=== PATIENT | male | born 1955 | race Caucasian/White ===

== ENCOUNTER 2024-09-15 16:52 | Emergency (ER) | payer MEDICARE, OTHER ==
[~2024-09-15] VITALS: Ht 167.6 cm; Wt 68.1 kg
--- NOTE | 2024-09-15 17:36 | ED.PDOC ---
HPI Comments 69-year-old male presents with a chief complaint of laceration s/p mechanical fall. Patient had a ground-level mechanical fall at home and landed on concrete. Patient sustained an approximately 5cm x 1cm laceration to the superior portion of his left eyebrow. Bleeding is controlled right now in triage with gauze. Patient denies losing consciousness or hitting his head. No use of blood thinners. Patient mildly hypertensive on arrival. Chief Complaint: Laceration Time Seen by MD: 17:33 Primary Care Provider: NONE Reviewed Notes: Nurses Notes, Medications, Allergies Allergies: Coded Allergies: NO KNOWN ALLERGIES (Unverified , 07/27/13) Information Source: Patient Mode of Arrival: Wheelchair Severity: Moderate Severity of Laceration: Controlled Bleeding Complexity: Intermediate Timing: Minutes Prehospital treatment: None Laceration Location: Face (SUPERIOR LEFT EYEBROW) Mechanism: Fall Last Tetanus: Unknown Laceration Length (cm): 5 Skin Type: Jagged Depth of Injury: Skin, Mucosa, SQ Tender: Moderate Discharge: Bloody Past Medical History PAST MEDICAL HISTORY: Denies Surgical History: Denies all surgeries Family History Family History: Unknown Social History Smoker: Cigarettes Alcohol: Denies ETOH Use Drugs: Denies Drug Use Lives In: Home Constitutional: denies: chills, diaphoresis, fatigue, fever, malaise, sweats, weakness, others EENTM: denies: blurred vision, double vision, ear bleeding, ear discharge, ear drainage, ear pain, ear ringing, eye pain, eye redness, hearing loss, mouth pain, mouth swelling, nasal discharge, nose bleeding, nose congestion, nose josie n, photophobia, tearing, throat pain, throat swelling, voice changes, others Respiratory: denies: cough, hemoptysis, orthopnea, SOB at rest, shortness of breath, SOB with excertion, stridor, wheezing, others Cardiovascular: denies: chest pain, dizzy spells, diaphoresis, Dyspnea on exertion, edema, irregular heart beat, left arm pain, lightheadedness, palpitations, PND, syncope, others Gastrointestinal: denies: abdomen distended, abdominal pain, blood streaked bowels, constipated, diarrhea, dysphagia, difficulty swallowing, hematemesis, melena, nausea, poor appetite, poor fluid intake, rectal bleeding, rectal pain, vomiting, others Genitourinary: denies: burning, dysuria, flank pain, frequency, hematuria, incontinence, penile discharge, penile sore, pain, testicle pain, testicle swelling, urgency, others Neurological: denies: dizziness, fainting, headache, left sided numbness, left sided weakness, numbness, paresthesia, pre-existing deficit, right sided numbness, right sided weakness, seizure, speech problems, tingling, tremors, weakness, others Musculoskeletal: denies: back pain, gout, joint pain, joint swelling, muscle pain, muscle stiffness, neck pain, others Integumetry: reports: laceration (Left eyebrow); denies: bruises, change in color, change in hair/nails, dryness, lesions, lumps, rash, wounds, others Allergic/Immunocompromised: denies: Difficulty Healing, Frequent Infections, Hives, Itching, others Hematologic/Lymphatic: denies: anemia, blood clots, easy bleeding, easy bruising, swollen glands, others Endocrine: denies: excessive hunger, excessive sweating, excessive thirst, excessive urination, flushing, intolerance to cold, intolerance to heat, unexplained weight gain, unexplained weight loss, others Psychiatric: denies: anxiety, bipolar disorder, depression, hopeless, panic disorder, schizophrenia, sleepless, suicidal, others All Other Systems: Reviewed and Negative Physical Exam General Appearance: Moderate Distress (Jcej-hz-votwanhv distress due to left eyebrow laceration and anxiety related to his injury.), Normal HEENT: Head (Patient displays a abrasion and burst laceration to the left eyebrow. Laceration that is approximately 5 cm wide throughout the brow. No ac tive bleed. No skull depressions or deformities. Abrasion noted to bridge of nose. Patient denies any eye involvement or vision changes.), Normal ENT Inspection, Pharynx Normal, TMs Normal Neck: Full Range of Motion, Non-Tender, Normal, Normal Inspection Respiratory: Chest Non-Tender, Lungs Clear, No Accessory Muscle Use, No Respiratory Distress, Normal Breath Sounds Cardiovascular: No Edema, No JVD, No Murmur, No Gallop, Normal Peripheral Pulses, Regular Rate/Rhythm Breast Exam: Deferred Gastrointestinal: No Organomegaly, Non Tender, No Pulsatile Mass, Normal Bowel Sounds, Soft Genitalia: Deferred Pelvic: Deferred Rectal: Deferred Extremities: No calf tenderness, Normal capillary refill, Normal inspection, Normal range of motion, Non-tender, No pedal edema Musculoskeletal : Apperance: Normal Neurologic: Alert, No Motor Deficits, Normal Affect, Normal Mood, No Sensory Deficits Cerebellar Function: NOT DONE Reflexes: NOT DONE Skin: Dry, Lacerations (See HEENT for description of laceration), Normal Color, Warm Lymphatic: No Adenopathy Was a procedure done? Was a procedure done?: Yes Sedation Sedation?: No Other Procedure Notes 6 cc of 1% lidocaine was utilized for local anesthesia throughout the left eyebrow. Sterile field was placed. Copious irrigation performed. Twelve 4-0 Ethilon sutures were utilized in a simple interrupted fashion to close the wound. Minimal blood loss. Patient tolerated procedure well. Clean bandage applied. Differential diagnosis Generic Laceration: Other (Fall, facial trauma, facial laceration, facial fracture) X-Ray, Labs, Meds, VS Vital Signs Date Time Temp Pulse Resp B/P (MAP) Pulse Ox O2 Delivery O2 Flow Rate FiO2 09/15/24 17:03 98.3 78 18 159/82 (107) 95 X-Ray, Labs, Meds, VS Comment All studies performed the ED were evaluated by me personally. No definitive skull fractures. Nasal bone fracture noted. Patient tolerated procedure well. Advised patient utilize antibiotics as directed until completion as well as pain medication as needed. Patient should return to ED or primary care provider in 10 days for re-evaluation and probable suture removal. Time of 1ST Reevaluation: 19:34 Reevaluation 1ST: Improved Consultation: PCP Patient Education/Counseling: Diagnosis, Treatment, Prognosis Family Education/Counseling: Diagnosis, Treatment, Prognosis Departure 1 Departure Time of Disposition: 19:34 Impression: Primary Impression: Fall Additional Impressions: Facial trauma Facial laceration Disposition: HOME / SELF CARE / HOMELESS Condition: Stable Additional Instructions: Advised patient utilize topical and oral antibiotics as directed and pain medication as needed. Patient should return to ED or primary care provider in 10 days for re-evaluation and probable suture removal. e-Prescriptions Acetaminophen (Tylenol Extra Strength) 500 Mg Tab 500 MG PO Q4HP PRN, #30 TAB Prov: NURIA VAUGHN PAC 09/15/24 Cephalexin (KEFLEX CAPSULE) 250 Mg Cp 1 CAP PO QID for 7 Days, #28 CAP Prov: NURIA VAUGHN PAC 09/15/24 Bacitracin Base (Bacitracin) 500 Unit/Gm Oin 500 UNIT TOP BID, #30 GM Prov: NURIA VAUGHN PAC 09/15/24 Discharged With: Self, Friend Critical Care Note Critical Care Time?: No Stability Stability form required: No I personally scribed for NURIA VAUGHN PAC ([email or web address]) on 09/15/24 at 17:36. Electronically submitted by Brian Crane ([email or web address]). NURIA VAUGHN PAC Sep 15, 2024 17:36
--- NOTE | 2024-09-15 18:17 | DVH ---
EXAM: CT MAXILLOFACIAL WITHOUT HISTORY: Left eyebrow trauma COMPARISON: None TECHNIQUE: Axial images were obtained and reformatted in coronal and sagittal planes. All CT scans at this medical facility are performed using dose modulation techniques as appropriate t o a performed exam including the following: Automated exposure control was utilized; adjustment of th e MA and/or KV according to patient size; and use of iterative reconstruction technique. CT Dose: CTDI volume is 66.92 mGy. Dose-length product is 1313.11 mGy*cm FINDINGS: PARANASAL SINUSES: Clear with no evidence for mucoperiosteal thickening or air-fluid level. OSTIOMEATAL COMPLEXES: Unremarkable. Specifically, the infundibulum are patent. NASAL CAVITY: The osseous nasal septum is midline. The nasal turbinates are unremarkable. MASTOIDS: Unremarkable. TEMPOROMANDIBULAR JOINTS: Unremarkable. ORBITS: Unremarkable. ORAL CAVITY: Grossly unremarkable. TONSILS AND ADENOIDS: Unremarkable. BONES/SOFT TISSUES: Age-indeterminate minimally displaced fracture of the right nasal bone near the t ip noted. The orbital bones are intact. The zygomatic arches, pterygoid plates and mandible are int act. Large left supraorbital laceration extending to the underlying bone. Small adjacent subcutaneous hematoma and trace subcutaneous air noted. OTHER: None. IMPRESSION: 1. Left supraorbital laceration extending to underlying bone without associated acute frontal bone in jury. A small adjacent subcutaneous hematoma is seen. No foreign body. 2. Age-indeterminate minimally displaced right nasal bone fracture noted. Correlate with haylee whitlock
[2024-09-15] MEDS ORDERED: CEPH250C PO (19:36)
[2024-09-15] MEDS ORDERED: BACIOIN15 TOP (19:36)
[2024-09-15] MEDS ORDERED: ACET-1304 PO (19:36)
[2024-09-15 19:45] VITALS: BP 145/97; PULSE 85; RESP 16; TEMP 98.3; O2SAT 94
== END 2024-09-15 20:12 | disposition home or self-care (01) ==
LOC: ER 16:52
DX: S02.2XXA Fracture of nasal bones, initial encounter for closed fracture (principal); S01.112A Laceration without foreign body of left eyelid and periocular area, initial encounter; F17.210 Nicotine dependence, cigarettes, uncomplicated; W18.30XA Fall on same level, unspecified, initial encounter; Y93.89 Activity, other specified; Y92.89 Other specified places as the place of occurrence of the external cause; Y99.8 Other external cause status
CPT/HCPCS: 12013; 70486

== ENCOUNTER 2024-09-29 22:03 | Emergency (ER) | payer SELFPAY ==
[~2024-09-29] VITALS: Ht 167.6 cm; Wt 79.8 kg
[~2024-09-29 22:03] MED LIST: ACET-1304 PO; BACIOIN15 TOP; CEPH250C PO
[2024-09-29 22:36] VITALS: BP 152/62; PULSE 105; RESP 20; O2SAT 96
--- NOTE | 2024-09-30 00:14 | ED.PDOC ---
History of Present Illness(SKN HPI Comments Pt pesents to ED d/t suture removal. Pt had sutures placed 12 days ago. Healing complete. No odor, drainage or redness noted.fevers or chills Chief Complaint: Suture Removal Time Seen by MD: 22:29 Primary Care Provider: NONE History of Present Illness: Nurses Notes, Medications, Allergies Allergies: Coded Allergies: NO KNOWN ALLERGIES (Unverified , 07/27/13) Home Meds Active Scripts Acetaminophen (Tylenol Extra Strength) 500 Mg Tab, 500 MG PO Q4HP PRN, #30 TAB Prov:NURIA VAUGHN PAC 09/15/24 Cephalexin (KEFLEX CAPSULE) 250 Mg Cp, 1 CAP PO QID for 7 Days, #28 CAP Prov:NURIA VAUGHN PAC 09/15/24 Bacitracin Base (Bacitracin) 500 Unit/Gm Oin, 500 UNIT TOP BID, #30 GM Prov:NURIA VAUGHN PAC 09/15/24 Information Source: Patient Mode of Arrival: Ambulatory Past Medical History PAST MEDICAL HISTORY: Denies Surgical History: Denies all surgeries Family History Family History: Reviewed,noncontributory to illness, Unknown Social History Smoker: Cigarettes Alcohol: Denies ETOH Use Drugs: Denies Drug Use Lives In: Home Constitutional: denies: chills, diaphoresis, fatigue, fever, malaise, sweats, weakness, others EENTM: denies: blurred vision, double vision, ear bleeding, ear discharge, ear drainage, ear pain, ear ringing, eye pain, eye redness, hearing loss, mouth pain, mouth swelling, nasal discharge, nose bleeding, nose congestion, nose pain, photophobia, tearing, throat pain, throat swelling, voice changes, others Respiratory: denies: cough, hemoptysis, orthopnea, SOB at rest, shortness of breath, SOB with excertion, stridor, wheezing, others Cardiovascular: denies: chest pain, dizzy spells, diaphoresis, Dyspnea on exertion, edema, irregular heart beat, left arm pain, lightheadedness, palpitations, PND, syncope, others Gastrointestinal: denies: abdomen distended, abdominal pain, blood streaked bowels, constipated, diarrhea, dysphagia, difficulty swallowing, hematemesis, melena, nausea, poor appetite, poor fluid intake, rectal bleeding, rectal pain, vomiting, others Genitourinary: denies: burning, dysuria, flank pain, frequency, hematuria, inc ontinence, penile discharge, penile sore, pain, testicle pain, testicle swelling, urgency, others Neurological: denies: dizziness, fainting, headache, left sided numbness, left sided weakness, numbness, paresthesia, pre-existing deficit, right sided numbness, right sided weakness, seizure, speech problems, tingling, tremors, weakness, others Musculoskeletal: denies: back pain, gout, joint pain, joint swelling, muscle pain, muscle stiffness, neck pain, others Integumetry: reports: laceration (Twelve sutures intact); denies: bruises, change in color, change in hair/nails, dryness, lesions, lumps, rash, wounds, others Allergic/Immunocompromised: denies: Difficulty Healing, Frequent Infections, Hives, Itching, others Hematologic/Lymphatic: denies: anemia, blood clots, easy bleeding, easy bruising, swollen glands, others Endocrine: denies: excessive hunger, excessive sweating, excessive thirst, excessive urination, flushing, intolerance to cold, intolerance to heat, unexplained weight gain, unexplained weight loss, others Psychiatric: denies: anxiety, bipolar disorder, depression, hopeless, panic disorder, schizophrenia, sleepless, suicidal, others Physical Exam General Appearance: No Apparent Distress, Normal HEENT: Pharynx Normal Neck: Full Range of Motion, Non-Tender Respiratory: Lungs Clear, No Respiratory Distress, Normal Breath Sounds Cardiovascular: No Murmur, Normal Peripheral Pulses, Regular Rate/Rhythm Breast Exam: Deferred Gastrointestinal: Non Tender, Soft Genitalia: Deferred Pelvic: Deferred Rectal: Deferred Extremities: Normal range of motion, Non-tender Musculoskeletal : Apperance: Normal Neurologic: Alert, alteration tailor II-XII nml as Tested, No Motor Deficits, Normal Affect, Normal Mood, No Sensory Deficits Cerebellar Function: Normal Reflexes: Normal Skin: Dry, Lacerations (Twelve sutures laceration above left eye laceration with good approximation healed no noted drainage erythema or), Normal Color, Warm Lymphatic: No Adenopathy Was a procedure done? Was a procedure done?: Yes Sedation Sedation?: No Informed consent obtained: Yes Other Procedure Procedure Suture removal Indication Healed Anesthetic None Prep None Success 12 sutures removed successfully all intact no noted bleeding patient tolerated well Informed consent obtained: Yes Risks, benefits, and alternati: Yes Differential Diagnosis (INTG) Differential Diagnosis: Cellulitis X-Ray, Labs, Meds, VS Vital Signs Date Time Temp Pulse Resp B/P (MAP) Pulse Ox O2 Delivery O2 Flow Rate FiO2 09/29/24 22:36 98.7 105 20 152/62 (92) 96 X-Ray, Labs, Meds, VS Comment See procedure note. Patient discharged advised to follow up with his PCP 2-3 days as necessary ER return precautions given patient indicates understanding. Time of 1ST Reevaluation: 00:13 Reevaluation 1ST: Improved Patient Education/Counseling: Diagnosis, Treatment, Prognosis, Need For Follow Up Family Education/Counseling: No Family Present Departure 1 Departure Time of Disposition: 00:13 Impression: Primary Impression: Encounter for removal of sutures Disposition: HOME / SELF CARE / HOMELESS Condition: Stable Discharged With: Self Critical Care Note Critical Care Time?: No Stability Stability form required: LUCIA Paulino Sep 30, 2024 00:14
== END 2024-09-30 00:23 | disposition home or self-care (01) ==
LOC: ER 22:03
DX: S05.32XD Ocular laceration without prolapse or loss of intraocular tissue, left eye, subsequent encounter (principal); F17.210 Nicotine dependence, cigarettes, uncomplicated; Z48.02 Encounter for removal of sutures; X58.XXXD Exposure to other specified factors, subsequent encounter

== ENCOUNTER 2025-04-19 03:34 | Inpatient (IN) | payer MEDICARE ==
[~2025-04-19] VITALS: Ht 170.2 cm; Wt 80.4 kg
[2025-04-19] VITALS (17 sets, daily range): BP systolic 99–111; BP diastolic 69–80; PULSE 54–89; RESP 16–20; TEMP 97.7–99.4; O2SAT 91–100
[2025-04-19] MEDS: MAGNESIUM SULFATE 1GM/100ML 100 ML IV ONE (04:00)
--- NOTE | 2025-04-19 04:04 | ED.PDOC ---
SOB-HPI HPI Comments HPI: 69-year-old male who came to ER for shortness of breath. Patient has a history of COPD. Not on home oxygen. Has been short of breath for the past 12 hours progressively worsened in the past 3 hours. Denies any acute chest pains. Patient was saturating 87% on room air upon arrival. Patient admits to still smoke cigarettes Initial Vitals BP: 111/75 HR: 87 RR: O2: Temp: Past Medical History: COPD Past Surgical History: Denies Social History: Denies ETOH, (+) chronic smoker, HPI: Poor Historian. REVIEW OF SYSTEMS: CONSTITUTIONAL: Denies acute: fever, diaphoresis, chills, generalized weakness. HEAD: Denies acute: headache, photophobia Eyes: Denies acute: Double vision, vision loss, eye pain, eye discharge. EARS: Denies acute: tinnitus, hearing loss, ear discharge, ear pain, THROAT: Denies acute: sore throat, swelling, difficulty swallowing , pain with swallowing, change in voice. NECK: Denies acute: neck pain, neck swelling, stiff neck. HEART: Denies acute : chest pain, palpitations, LUNGS: Denies acute: wheezing, cough, hemoptysis ABDOMEN: Denies acute: abdominal pain, Nausea, Vomiting, diarrhea, melena , hematemesis, hematochezia SKIN: Denies acute: rash, redness, lesions, itchiness. EXTREMITIES: Denies acute: calf pain, numbness, tingling, weakness, denies pain in extremity. Denies acute: Low back pain. Neuro: Denies acute: focal neurological deficit, motor or sensory focal neurological deficit, tremors, seizure like activity, confusion, dizziness, change in mental status, loss of bowel or bladder function, cauda equina like symptoms. : Denies acute: dysuria, hematuria, flank pain, increase in urinary frequency. PSYCH: Denies acute: hallucination, suicidal ideation, homicidal ideation. PHYSICAL EXAM: General: --------acute distress, awake and alert. Head: normocephalic, atraumatic. Neck: supple, trachea is midline, no swelling. Throat: Normal phonation. Eyes:, no erythema, no purulent discharge, no proptosis, no icterus. Heart: regular rate, regular rhythm, no significant murmur appreciated. Lungs: Moderate respiratory distress, No wheezing, no rhonchi, no crackles. No stridors. Diminished breath sounds throughout Abdomen: non tender to palpation, non distended, soft, no guarding, no rebound, + bowel sounds. Neuro: Awake, Alert, oriented to name, self, situation, follows commands GCS=15. Speech is normal. Skin: no petechia, no purpura, no cyanosis, non-pale, not jaundice. Lower extremities: --no - Pitting edema no deformity, no focal swelling, no calf TTP. Makes eye contact. moves all four extremities. Face: no apparent facial droop. ED COURSE: DISCLAIMER: This medical document was created using an electronic medical record system with voice recognition software and computerized dictation system. Although this document has been carefully reviewed, there might still be some phonetic and typographical errors. Occasional wrong-word or "sound-alike" substitutions may have occurred due to the inherent limitations of voice recognition software. These areas are purely typographical due to imperfections of the software programs and do not reflect any compromise in the patient's medical care. Please read the chart carefully and recognize, using context, where these substitutions have occurred. Chief Complaint: Shortness of Breath Time Seen by MD: 04:03 Primary Care Provider: NONE Reviewed notes: Nurses Notes Information Source: Patient Mode of Arrival: Wheelchair Past Medical History PAST MEDICAL HISTORY: COPD Surgical History: Denies all surgeries Family History Family History: Reviewed,noncontributory to illness Social History Smoker: Cigarettes, Greater Than 1 Pack/Day Alcohol: Denies ETOH Use Drugs: Denies Drug Use Lives In: Home EKG EKG : Pulse Rate (adult): 103 Cardiac Rhythm: Afib Was a procedure done? Was a procedure done?: No Differential Dx Differential Diagnosis: Asthma, Bronchitis, COPD, Hyperventilation, Pneumonia, Respiratory Distress, Other (DDx include ACS, unstable angina, anxiety, PE, pneumothroax, neoplasm, cardiac ischemia, COPD, asthma, CHF, pleural effusion, tobacco abuse, pneumonia, hypoxia, hypercapnia, anemia., infection/sepsis., pulmonary edema. Asthma, Cardiac tamponade, infection.) X-Ray, Labs, Meds, VS Vital Signs Date Time Temp Pulse Resp B/P (MAP) Pulse Ox O2 Delivery O2 Flow Rate FiO2 04/19/25 04:29 22 96 Simple Mask* 6 50 04/19/25 04:04 103 04/19/25 03:53 103 04/19/25 03:35 99.4 95 22 111/75 98 99.4 Lab Test 04/19/25 05:15 04/19/25 04:00 Range/Units Troponin I High Sensitivity 15 16 </=54 ng/L White Blood Count 19.4 H 4.4-10.8 10^3/uL Red Blood Count 4.90 4.5-5.90 10^6/uL Hemoglobin 15.1 13.5-17.5 g/dL Hematocrit 44.8 41.0-53.0 % Mean Corpuscular Volume 91.3 80.0-100.0 fL Mean Corpuscular Hemoglobin 30.8 28.0-32.0 pg Mean Corpuscular Hemoglobin Concent 33.7 32.0-36.0 g/dL Red Cell Distribution Width 14.5 H 11.8-14.3 % Platelet Count 289 140-450 10^3/uL Mean Platelet Volume 7.9 6.9-10.8 fL Neutrophils (%) (Auto) 82.2 H 37.0-80.0 % Lymphocytes (%) (Auto) 9.0 L 10.0-50.0 % Monocytes (%) (Auto) 7.8 0.0-12.0 % Eosinophils (%) (Auto) 0.2 0.0-7.0 % Basophils (%) (Auto) 0.8 0.0-2.0 % Neutrophils # (Auto) 15.9 H 1.6-8.6 10 ^3/uL Lymphocytes # (Auto) 1.7 0.4-5.4 10 ^3/uL Monocytes # (Auto) 1.5 H 0-1.3 10 ^3/uL Eosinophils # (Auto) 0 0-0.8 10 ^3/uL Basophils # (Auto) 0.1 0-0.2 10 ^3/uL Nucleated Red Blood Cells 0.0 % D-Dimer, Quantitative 0.33 0.0-0.49 mg/L FEU Sodium Level 140 136-145 mmol/L Potassium Level 4.6 3.5-5.1 mmol/L Chloride Level 106 98-107 mmol/L Carbon Dioxide Level 27 20-31 mmol/L Anion Gap 7 5-15 Blood Urea Nitrogen 14 9-23 mg/dL Creatinine 1.37 H 0.700-1.30 mg/dL Glomerular Filtration Rate Calc 57 >90 mL/min BUN/Creatinine Ratio 10.2 10.0-20.0 Serum Glucose 95 74-106 mg/dL Calcium Level 9.7 8.7-10.4 mg/dL Total Bilirubin 1.1 H 0.2-1.0 mg/dL Aspartate Amino Transferase (AST) 24 13-40 U/L Alanine Aminotransferase (ALT) 13 7-40 U/L Alkaline Phosphatase 78 46-116 U/L B-Type Natriuretic Peptide 73.84 0-100 pg/mL Total Protein 7.3 5.7-8.2 g/dL Albumin 4.3 3.2-4.8 g/dL Current Medications Medications (Trade) Dose Ordered Sig/Viraj Route Start Time Stop Time Status Last Admin Albuterol (Ventolin Medneb) 2.5 mg ONCE ONCE NEB 04/19/25 04:00 04/19/25 04:01 DC 04/19/25 04:30 Ipratropium [place] (Atrovent Medneb) 1 mg ONCE ONCE NEB 04/19/25 04:00 04/19/25 04:01 DC 04/19/25 04:29 Albuterol (Ventolin Medneb) 2.5 mg ONCE ONCE NEB 04/19/25 05:30 04/19/25 05:31 DC 04/19/25 05:35 Ipratropium Outlook (Atrovent Medneb) 1 mg ONCE ONCE NEB 04/19/25 05:30 04/19/25 05:31 DC 04/19/25 05:[address] [address] Ph: [phone] DIAGNOSTIC IMAGING Diagnostic Imaging Report : [id number] Signed PATIENT: TARA MENDOZA ACCT: [id number] UNIT: [id number] : 1955 LOC: ER ROOM / BED: / AGE / SEX: 69 / M ADM STATUS: REG ER SERVICE 0339 ORDERING PHYSICIAN: GAIL RICKS DO PROCEDURE(s): CXRP - CHEST PORTABLE REASON: sob ORDER NUMBER(s): [id number], ACCESSION NUMBER(s): [id number] CHEST RADIOGRAPH Indication: sob Technique: 2 frontal radiographs of the chest were obtained. Comparison: None FINDINGS: Lines and Tubes: None Lungs: No focal consolidation. Pleura: No effusion. No pneumothorax. Cardiomediastinal contours: Unremarkable Bones: No acute osseous abnormality. IMPRESSION: 1. No acute cardiopulmonary disease. ATED BY: VIOLA JOHNSON MD DICTATED DATE/TIME: 04/19/25450 SIGNED BY: VIOLA JOHNSON MD SIGNED DATE/TIME: 04/19/25450 CC: Time of 1ST Reevaluation: 04:00 Reevaluation 1ST: Unchanged Patient Education/Counseling: Diagnosis, Treatment Family Education/Counseling: Diagnosis, Treatment Comments MDM: patient presented with the above HPI.---dyspnea/respiratory distress---workup was initiated. patient was found with the above mentioned diagnosis. the following medications were ordered: please refer to order lists of meds and tests obtained by myself Dr. Ricks. Patient ED course and VS have been stabilized. Patient has been reassessed in the ED and remained in a stable condition. Pertinent incidental findings were discussed with the patient and/or family. Patient/family voices understanding and is agreeable with plan. Patient has been observed in the ED adequate length of time to insure improvement/stability. Escalation of care considered: Consideration of escalation to observation or admission Patient was found with leukocytosis, antibiotics were initiated. Patient was given breathing treatments and steroids. Patient was placed on supplemental oxygen. Patient was ADMITTED to the medicine team for further evaluation and treatment of their presentation. All the reports of any imaging studies that were ordered by myself were reviewed by myself. SEPSIS Sepsis Screen Physician Orders [facility] (04/19/25 ) Urinalysis (04/19/25 03:39) Chest Portable (04/19/25 03:39) Troponin-I Hs (04/19/25 06:39) Vital Signs Date Time Temp Pulse Resp B/P (MAP) Pulse Ox O2 Delivery O2 Flow Rate FiO2 04/19/25 04:29 22 96 Simple Mask* 6 50 04/19/25 04:04 103 04/19/25 03:53 103 9/12/25 03:35 99.4 95 22 111/75 98 99.4 Laboratory Tests Test 04/19/25 04:00 White Blood Count 19.4 10^3/uL (4.4-10.8) H Medications Medications Dose Ordered Sig/Viraj Route Start Time Stop Time Status Last Admin Dose Admin Albuterol 2.5 mg ONCE ONCE NEB 04/19/25 04:00 04/19/25 04:01 DC 04/19/25 04:30 Albuterol 2.5 mg ONCE ONCE NEB 04/19/25 05:30 04/19/25 05:31 DC 04/19/25 05:35 Ipratropium Outlook 1 mg ONCE ONCE NEB 04/19/25 04:00 04/19/25 04:01 DC 04/19/25 04:29 Ipratropium [place] 1 mg ONCE ONCE NEB 04/19/25 05:30 04/19/25 05:31 DC 04/19/25 05:35 Departure 1 Departure Time of Disposition: 04:04 Impression: Primary Impression: Acute respiratory distress Additional Impressions: Hypoxemia COPD exacerbation Tobacco abuse Leukocytosis Disposition: ADMITTED INPATIENT Admit to: Tele Condition: Guarded Discharged With: Self, Spouse Critical Care Note Critical Care Time?: Yes (45 min-critical care time only) Stability Stability form required: No Heart Score Heart Score: Heart Score Response (Comments) Value History Moderate Suspicious 1 EKG Repolarization Disturb 1 Age >65 2 Risk Factors 1 or 2 risk factors 1 Troponin Normal limit 0 Total 5 I personally scribed for GAIL RICKS DO ([email or web address]) on 04/19/25 at 04:04. Electronically submitted by Martinez Wallace ([employer]). I personally scribed for GAIL RICKS DO ([email or web address]) on 04/19/25 at 04:19. Electronically submitted by Martinez Wallace ([employer]). I personally scribed for GAIL RICKS DO ([email or web address]) on 04/19/25 at 05:17. Electronically submitted by Martinez Wallace ([employer]). GAIL RICKS DO Apr 19, 2025 04:04
--- NOTE | 2025-04-19 04:09 | ECG ---
[facility] Test Date: 2025-04-19 Test Time: 03:53:25 Pat Name: TARA MENDOZA Department: ED Room: 0284T Gender: M Patternmaker All Around: ONEL : 1955 Requested By: GAIL RICKS Order Number: [id number] Reading MD: Scott Gonzalez Measurements Intervals Marble Rate: 103 P: 0 NC: 0 QRS: 78 QRSD: 90 T: 98 QT: 339 QTc: 444 Interpretive Statements Normal sinus rhythm Ventricular tachycardia, unsustained Borderline low voltage, extremity leads Electronically Signed On 04-24-2025 9:25:17 PDT by Scott Gonzalez Please click the below link to view image of tracing.
[2025-04-19 04:15] LABS: Hematocrit 44.8 % (41.0-53.0); Hemoglobin 15.1 g/dL (13.5-17.5); Mean Corpuscular Hemoglobin 30.8 pg (28.0-32.0); Mean Corpuscular Volume 91.3 fL (80.0-100.0); Nucleated Red Blood Cells % 0.0 %
[2025-04-19] MEDS: IPRATROPIUM BROM 0.5 MG/2.5ML INH SOL NEB ONE ×2 (04:29→05:35)
[2025-04-19] MEDS: ALBUTEROL SULF 2.5 MG/0.5ML(0.5%) NEB SOLN NEB ONE ×2 (04:30→05:35)
[2025-04-19 04:33] LABS: Alanine Aminotransferase 13 U/L (7-40); Alkaline Phosphatase 78 U/L (46-116); Anion Gap 7 (5-15); Calcium 9.7 mg/dL (8.7-10.4); Carbon Dioxide 27 mmol/L (20-31); Chloride 106 mmol/L (98-107); Glucose 95 mg/dL (74-106); Potassium 4.6 mmol/L (3.5-5.1); Sodium 140 mmol/L (136-145); Total Protein 7.3 g/dL (5.7-8.2)
[2025-04-19 04:34] LABS: Albumin 4.3 g/dL (3.2-4.8); BUN/Creatinine Ratio 10.2 (10.0-20.0); Bilirubin, Total 1.1 mg/dL (0.2-1.0); Blood Urea Nitrogen 14 mg/dL (9-23)
--- NOTE | 2025-04-19 04:54 | DVH ---
CHEST RADIOGRAPH Indication: sob Technique: 2 frontal radiographs of the chest were obtained. Comparison: None FINDINGS: Lines and Tubes: None Lungs: No focal consolidation. Pleura: No effusion. No pneumothorax. Cardiomediastinal contours: Unremarkable Bones: No acute osseous abnormality. IMPRESSION: 1. No acute cardiopulmonary disease.
--- NOTE | 2025-04-19 07:25 | DVHHP2 ---
History of Present Illness Reason for Visit: Shortness of the breath History of Present Illness 69-year-old male past medical history denies denies surgical history chief complaint patient comes in with shortness of the breath for one day. No fever patient does have a cough does have some phlegm is yellow in color no blood. Patient denies any calf pain or leg swelling. He states he does not use oxygen at home. Patient does admit to being a smoker greater than 30 years he smokes proximally and pack a day. He states he has not been diagnosed with any COPD in the past. He states he started developing shortness of the breath 12 hours prior to arrival with the last 3 hours his symptoms got worse. He also was found to have O2 sats 87% on room air. When evaluating patient's labs and imaging patient was given albuterol Atrovent ceftriaxone normal saline magnesium Solu-Medrol white count was found to be 19.4 otherwise CBC was unremarkable creatinine was 1.37 troponin was negative x2 BNP was 73.84 chest x-ray was unremarkable D-dimer was negative with these findings we will admit patient for new onset COPD exacerbation Past Medical History See HPI above Past Surgical History See HPI above Past Social History Patient has been smoking greater than 30 years a pack of cigarettes daily denies drug or alcohol use Review of Systems Constitutional: No: Fever, Chills, Sweats, Weakness, Malaise, Other Eyes: No: Pain, Vision change, Conjunctivae inflammation, Eyelid inflammation, Other, Redness ENT: No: Ear pain, Ear discharge, Nose pain, Nose discharge, Nose congestion, Mouth pain, Mouth swelling, Throat pain, Throat swelling, Other Respiratory: Shortness of breath, SOB with excertion, Wheezing; No: Cough, Dry, Hemoptysis, Pleuritic Pain, Sputum, Wheezing, Other Cardiovascular: No: Chest Pain, Palpitations, Orthopnea, Paroxysmal Noc. Dyspnea, Edema, Lt Headedness, Other Gastrointestinal: No: Nausea, Vomiting, Abdominal Pain, Diarrhea, Constipation, Melena, Hematochezia, Other Genitourinary: No Dysuria, No Frequency, No Incontinence, No Hematuria, No Retention, No Other Musculoskeletal: No: other, neck pain, shoulder pain, arm pain, back pain, hand pain, leg pain, foot pain Skin: No: Rash, Lesions, Jaundice, Bruising, Other Neurological: No: Weakness, Numbness, Incoordination, Change in speech, Confusion, Seizures, Other Allergies: Coded Allergies: NO KNOWN ALLERGIES (Unverified , 07/27/13) Exam Vital Signs Vital Signs Date Time Temp Pulse Resp B/P (MAP) Pulse Ox O2 Delivery O2 Flow Rate FiO2 04/19/25 04:29 22 96 Simple Mask* 6 50 04/19/25 04:04 103 04/19/25 03:35 99.4 111/75 99.4 General Appearance: Alert, Oriented X3, Cooperative, mild distress HEENT: Atraumatic, PERRLA, EOMI, Mucous membr. moist/pink Respiratory: Other (diminished throughout ) Cardiovascular: Regular rate, Normal S1, Normal S2, No murmurs Abdominal: Normal bowel sounds, Soft, No tenderness, No hepatospenomegaly, No masses Extremities: No clubbing, No cyanosis, No edema, Normal pulses, No tenderness/swelling Skin: No rashes, No breakdown, No significant lesion Neuro: Normal gait, Normal speech, Strength at 5/5 X4 ext, Normal tone, Sensation intact, Cranial nerves 3-12 NL Psych/Mental Status: Mental status NL, Mood NL Labs/Xrays Chest x-ray unremarkable I reviewed labs, imaging CT scan abdomen pelvis, EKG and all diagnostic studies on this patient from ED records and the medical chart Labs Test 04/19/25 05:15 04/19/25 04:00 Range/Units Troponin I High Sensitivity 15 </=54 ng/L White Blood Count 19.4 H 4.4-10.8 10^3/uL Red Blood Count 4.90 4.5-5.90 10^6/uL Hemoglobin 15.1 13.5-17.5 g/dL Hematocrit 44.8 41.0-53.0 % Mean Corpuscular Volume 91.3 80.0-100.0 fL Mean Corpuscular Hemoglobin 30.8 28.0-32.0 pg Mean Corpuscular Hemoglobin Concent 33.7 32.0-36.0 g/dL Red Cell Distribution Width 14.5 H 11.8-14.3 % Platelet Count 289 140-450 10^3/uL Mean Platelet Volume 7.9 6.9-10.8 fL Neutrophils (%) (Auto) 82.2 H 37.0-80.0 % Lymphocytes (%) (Auto) 9.0 L 10.0-50.0 % Monocytes (%) (Auto) 7.8 0.0-12.0 % Eosinophils (%) (Auto) 0.2 0.0-7.0 % Basophils (%) (Auto) 0.8 0.0-2.0 % Neutrophils # (Auto) 15.9 H 1.6-8.6 10 ^3/uL Lymphocytes # (Auto) 1.7 0.4-5.4 10 ^3/uL Monocytes # (Auto) 1.5 H 0-1.3 10 ^3/uL Eosinophils # (Auto) 0 0-0.8 10 ^3/uL Basophils # (Auto) 0.1 0-0.2 10 ^3/uL Nucleated Red Blood Cells 0.0 % D-Dimer, Quantitative 0.33 0.0-0.49 mg/L FEU Sodium Level 140 136-145 mmol/L Potassium Level 4.6 3.5-5.1 mmol/L Chloride Level 106 98-107 mmol/L Carbon Dioxide Level 27 20-31 mmol/L Anion Gap 7 5-15 Blood Urea Nitrogen 14 9-23 mg/dL Creatinine 1.37 H 0.700-1.30 mg/dL Glomerular Filtration Rate Calc 57 >90 mL/min BUN/Creatinine Ratio 10.2 10.0-20.0 Serum Glucose 95 74-106 mg/dL Calcium Level 9.7 8.7-10.4 mg/dL Total Bilirubin 1.1 H 0.2-1.0 mg/dL Aspartate Amino Transferase (AST) 24 13-40 U/L Alanine Aminotransferase (ALT) 13 7-40 U/L Alkaline Phosphatase 78 46-116 U/L B-Type Natriuretic Peptide 73.84 0-100 pg/mL Total Protein 7.3 5.7-8.2 g/dL Albumin 4.3 3.2-4.8 g/dL SEPSIS Sepsis Screen Date sepsis recognized/suspect: Apr 19, 2025 Time Sepsis recognized/suspect: 338 Recent Procedure: No On Antibiotic Therapy: No Respiratory Rate >20: Yes Heart Rate >90: No Temp<36 C (96.8 F) or >38.3 C: No SBP <90 or MAP <65 mmHG: No New Acute Mental Status Change: No Is the patient on CPAP, BIPAP,: No Physician Orders [employer] (04/19/25 ) Urinalysis (04/19/25 03:39) Chest Portable (04/19/25 03:39) Troponin-I Hs (04/19/25 06:39) Vital Signs Date Time Temp Pulse Resp B/P (MAP) Pulse Ox O2 Delivery O2 Flow Rate FiO2 04/19/25 04:29 22 96 Simple Mask* 6 50 04/19/25 04:04 103 04/19/25 03:53 103 04/19/25 03:35 99.4 95 22 111/75 98 99.4 Laboratory Tests Test 04/19/25 04:00 White Blood Count 19.4 10^3/uL (4.4-10.8) H Medications Medications Dose Ordered Sig/Viraj Route Start Time Stop Time Status Last Admin Dose Admin Albuterol 2.5 mg ONCE ONCE NEB 04/19/25 04:00 04/19/25 04:01 DC 04/19/25 04:30 2.5 MG Albuterol 2.5 mg ONCE ONCE NEB 04/19/25 05:30 04/19/25 05:31 DC 04/19/25 05:35 2.5 MG Ipratropium [place] 1 mg ONCE ONCE NEB 04/19/25 04:00 04/19/25 04:01 DC 04/19/25 04:29 1 MG Ipratropium [place] 1 mg ONCE ONCE NEB 04/19/25 05:30 04/19/25 05:31 DC 04/19/25 05:35 1 MG Assessment/Plan Assessment/Plan Acute hypoxic respiratory distress likely from new onset copd exacerbation cxr normal On O2 mask sats >92% if pt have resp distress repeat abg to expect resp failure no indication for iv antibotics ordered Albuterol and Atrovent atc ordered solumedrol atc ordered covid and influenza ddimer negative trop negative/bnp negative acute new onset copd exacerbation ordered albuterol/atrovent prn cont o2 to keep sats >92% bipap is symptoms are worsening acute leukocytosis ordered sputum culture ordered ppx ceftriaxone and azithromax for now acute yaron ordered ivf hydration for now avoid renal toxic drugs fu crea in am Tobacco dependence i counseled the patient for 6 min about smoking suggestions pt accepted nicotine patch and tobacco education smoking code 76870 fen/ppx protonix while on steroids scd diet ivf for now dispo admit to medicine Plan discussed with: Patient Date of Service: Apr 19, 2025 Billing Provider: PATRICIA ARZOLA DNP Common Visit Codes: [id number] INP/OBS CARE (HIGH) PATRICIA ARZOLA DNP Apr 19, 2025 07:25
[2025-04-19] MEDS ORDERED: DOCUSATE SOD 100 MG CAP PO PRN (07:30)
[2025-04-19] MEDS ORDERED: ONDANSETRON HCL 4 MG/2 ML VIAL IV PRN (08:00)
[2025-04-19] MEDS ORDERED: NITROGLYCERIN 0.4 MG SL TAB SL PRN (09:30)
[2025-04-19] MEDS: methylPREDNISolone SOD SUCC 125 MG/2 ML VL IV ONE (10:12)
[2025-04-19] MEDS: SODIUM CHLORIDE 0.9% 500 ML IV ONE (10:39)
[2025-04-19 10:46] LABS: COVID19 ANTIGEN SOFIA FIA NEGATIVE (NEGATIVE)
[2025-04-19] MEDS: NICOTINE 21MG/24 HR TOPICAL PATCH TD ONE (10:52)
[2025-04-19] MEDS: AZITHROMYCIN 500MG/ 250ML 250 ML IV ONE (10:53)
[2025-04-19] MEDS: PANTOPRAZOLE 40 MG/10 ML VIAL INJ IV ONE (10:53)
[2025-04-19] MEDS: SODIUM CHLORIDE 0.9% 1,000 ML IV SCH (10:54)
[2025-04-19] MEDS: ENOXAPARIN SOD 40 MG/0.4 ML SYRINGE SC SCH (10:54)
[2025-04-19] MEDS: ALBUTEROL SULF 2.5 MG/0.5ML(0.5%) NEB SOLN NEB SCH (14:00)
[2025-04-19] MEDS: IPRATROPIUM BROM 0.5 MG/2.5ML INH SOL NEB SCH (14:00)
[2025-04-19] MEDS: methylPREDNISolone SOD SUCC 40 MG/ML VL IV SCH (15:43)
[2025-04-19 16:04] LABS: Urine Protein, UAD Negative (Negative)
[2025-04-20] VITALS (18 sets, daily range): BP systolic 101–130; BP diastolic 48–85; PULSE 72–106; RESP 16–21; TEMP 97.6–98.3; O2SAT 90–100
[2025-04-20 07:10] LABS: Hematocrit 41.7 % (41.0-53.0); Hemoglobin 14.3 g/dL (13.5-17.5); Mean Corpuscular Hemoglobin 31.3 pg (28.0-32.0); Mean Corpuscular Volume 91.3 fL (80.0-100.0); Nucleated Red Blood Cells % 0.0 %
[2025-04-20 07:16] LABS: Alanine Aminotransferase 13 U/L (7-40); Albumin 3.9 g/dL (3.2-4.8); Alkaline Phosphatase 67 U/L (46-116); Anion Gap 9 (5-15); BUN/Creatinine Ratio 14.8 (10.0-20.0); Bilirubin, Total 0.3 mg/dL (0.2-1.0); Blood Urea Nitrogen 19 mg/dL (9-23); Calcium 9.3 mg/dL (8.7-10.4); Carbon Dioxide 25 mmol/L (20-31); Potassium 4.1 mmol/L (3.5-5.1); Sodium 141 mmol/L (136-145); Total Protein 6.7 g/dL (5.7-8.2)
[2025-04-20 07:18] LABS: Chloride 107 mmol/L (98-107); Glucose 162 mg/dL (74-106)
[2025-04-20] MEDS: PANTOPRAZOLE 40 MG/10 ML VIAL INJ IV SCH (09:22)
[2025-04-20] MEDS: AZITHROMYCIN 500MG/ 250ML 250 ML IV SCH (10:32)
--- NOTE | 2025-04-20 11:57 | DVHPN2 ---
Reviewed: Care Plan, H&P, Labs, Medications, Previous Orders, Radiology Changes from previous H/P or p: No Changes Eyes: No Pain, No Vision change, No Conjunctivae inflammation, No Eyelid inflammation, No Other, No Redness ENT: No Ear pain, No Ear discharge, No Nose pain, No Nose discharge, No Nose congestion, No Mouth pain, No Mouth swelling, No Throat pain, No Throat swelling, No Other Cardiovascular: No Chest Pain, No Palpitations, No Orthopnea, No Paroxysmal Noc. Dyspnea, No Edema, No Lt Headedness, No Other Respiratory: No Cough, No Dry; Shortness of breath, SOB with excertion, W heezing; No Hemoptysis, No Pleuritic Pain, No Sputum, No Other Gastrointestinal: No Nausea, No Vomiting, No Abdominal Pain, No Diarrhea, No Constipation, No Melena, No Hematochezia, No Other Genitourinary: No Dysuria, No Frequency, No Incontinence, No Hematuria, No Retention, No Other Musculoskeletal: No other, No neck pain, No shoulder pain, No arm pain, No back pain, No hand pain, No leg pain, No foot pain Skin: No Rash, No Lesions, No Jaundice, No Bruising, No Other Objective Vitals Vital Signs Date Time Temp Pulse Resp B/P (MAP) Pulse Ox O2 Delivery O2 Flow Rate FiO2 04/20/25 10:40 88 20 100 04/20/25 10:00 Nasal Cannula* 2 28 04/20/25 09:00 97.7 115/85 (95) 97.7 Intake/Output Intake and Output 04/20/25 06:59 Intake Total 1800 ml Balance 1800 ml Intake Oral 800 ml IV Total 1000 ml # Voids 4 Medications Current Medications Medications Dose Ordered Sig/Viraj Route Start Time Stop Time Status Last Admin Dose Admin Methylprednisolone Sodium Succinate 40 mg Q8HR IV 04/19/25 14:00 04/20/25 06:10 40 MG Albuterol 2.5 mg Q4HR NEB 04/19/25 10:00 04/20/25 10:38 2.5 MG Ipratropium [place] 0.5 mg Q4HR NEB 04/19/25 10:00 04/20/25 10:38 0.5 MG Ceftriaxone Sodium 50 ml @ 100 mls/hr DAILY@09 IV 04/19/25 09:00 04/20/25 09:22 100 MLS/HR Azithromycin 250 ml @ 125 mls/hr DAILY IV 04/20/25 10:00 04/20/25 10:32 125 MLS/HR Pantoprazole Sodium 40 mg DAILY IV 04/20/25 10:00 04/20/25 09:22 40 MG Sodium Chloride 1,000 ml @ 100 mls/hr Q10H IV 04/19/25 07:30 04/20/25 03:17 100 MLS/HR Ondansetron HCl 4 mg Q4HP PRN IV 04/19/25 08:00 Docusate Sodium 100 mg BIDPRN PRN PO 04/19/25 07:30 Enoxaparin Sodium 40 mg DAILY SC 04/19/25 10:00 04/20/25 09:21 40 MG Nitroglycerin 0.4 mg Q5MINP PRN SL 04/19/25 09:30 Laboratory Results Laboratory Tests 04/20/25 06:10 Chemistry Test 04/20/25 06:10 Albumin 3.9 g/dL (3.2-4.8) Calcium Level 9.3 mg/dL (8.7-10.4) Total Protein 6.7 g/dL (5.7-8.2) LFT Test 04/20/25 06:10 Alanine Aminotransferase (ALT) 13 U/L (7-40) Alkaline Phosphatase 67 U/L (46-116) Aspartate Amino Transferase (AST) 17 U/L (13-40) Total Bilirubin 0.3 mg/dL (0.2-1.0) Urinalysis Test 04/19/25 15:30 Urine Color Yellow (Yellow) Urine Clarity Clear (Clear) Urine pH 5.5 (5.0-9.0) Urine Specific [place] 1.027 (1.001-1.035) Urine Protein Negative (Negative) Urine Ketones Negative (Negative) Urine Blood Negative /uL (Negative) Urine Nitrite Negative (Negative) Urine Bilirubin Negative (Negative) Urine Urobilinogen Normal mg/dL (Negative) Urine Leukocyte Esterase Negative /uL (Negative) Urine RBC 1 /hpf (0 - 3) Urine Microscopic WBC 1 /HPF (0-3) Urine Squamous Epithelial Cells None seen /hpf (<5) Urine Bacteria None seen /hpf (None Seen) Urine Mucus Few (None Seen) Urine Glucose Normal mg/dL (Normal) Labs and/or images reviewed: Labs reviewed by me, Image(s) reviewed by me Assessment/Plan Assessment/Plan Sepsis possibly secondary to community-acquired pneumonia: Rocephin azithromycin Exertional Dyspnea: Echocardiogram cardiology consult Acute hypoxic respiratory distress likely from new onset copd exacerbation : Albuterol Atrovent med neb Acute COPD exacerbation possibly new onset BRIA Acute dehydration Troponin neg BNP neg Chronic Current smoker: Counseled Time Spent 70 minutes Advanced care planning time 20 minutes Patient is full code Plan discussed with: Patient Date of Service: Apr 20, 2025 Billing Provider: BLAZE ROMAN MD Common Visit Codes: [id number] CARE 30-74 MIN BLAZE ROMAN MD Apr 20, 2025 11:57
--- NOTE | 2025-04-20 14:33 | DVHINCON2 ---
Date Seen: Apr 20, 2025 Referring Physician MD Alphonso Reason for Consultation Exertional dyspnea History of Present Illness This is a 69-year-old male patient who presents to emergency room with chief complaint of shortness of breath for 6 hours prior to emergency room arrival. The patient reports a sudden onset of shortness of breath that remained constant for approximately 6 hours before he decided to come to the emergency room. Upon emergency room arrival, his oxygen saturation was 87% on room air. The patient was provided with a breathing treatment and placed on supplemental oxygen. A twelve lead electrocardiogram was done in the emergency room and is indisce rnible given artifact (EKG machine reads atrial fibrillation but every lead has artifact). A repeat twelve lead electrocardiogram was ordered at time of assessment and reveals normal sinus rhythm with PACs. Serial troponin levels have been unremarkable. BNP level of 73.84pg/mL. At the time of assessment the patient is med surge status, patient was upgraded to telemetry. At the time of assessment, the patient denies any shortness of breath. The patient clarified that it was not exertional dyspnea and that he was feeling constant dyspnea for 6 hours prior to emergency room arrival. Significant past medical history includes COPD and tobacco use. Past Medical History Past medical history reviewed. No other significant than mentioned above. Past Surgical History Denies any previous surgeries Family History: Patient reports no known family medical history. Family History Family history reviewed. Social History Patient has a 30 pack-year history, smokes approximately one pack per day Denies illicit drug use Denies any alcohol use Allergies: Coded Allergies: NO KNOWN ALLERGIES (Unverified , 07/27/13) Home Meds Active Scripts Acetaminophen (Tylenol Extra Strength) 500 Mg Tab, 500 MG PO Q4HP PRN, #30 TAB Prov:NURIA VAUGHN PAC 09/15/24 Cephalexin (KEFLEX CAPSULE) 250 Mg Cp, 1 CAP PO QID for 7 Days, #28 CAP Prov:NURIA VAUGHN PAC 09/15/24 Bacitracin Base (Bacitracin) 500 Unit/Gm Oin, 500 UNIT TOP BID, #30 GM Prov:NURIA VAUGHN PAC 09/15/24 Home Meds Home medications reviewed. Current Medications Current Medications Medications (Trade) Dose Ordered Sig/Viraj Route PRN Reason Start Time Stop Time Status Last Admin Azithromycin 250 ml @ 125 mls/hr DAILY IV 04/20/25 10:00 04/20/25 10:32 Pantoprazole Sodium (Protonix) 40 mg DAILY IV 04/20/25 10:00 04/20/25 09:22 Review of Systems Constitutional: No symptom reported Ears, Nose, & Throat: No symptom reported Eyes: No symptom reported Neurological: No symptoms reported Pulmonary/Respiratory: Shortness of breath Cardiovascular: No symptom reported Gastrointestinal: No symptom reported Genitourinary: No symptom reported Musculoskeletal: No symptom reported Skin: No symptom reported Psychiatric: No symptom reported Endocrine: No symptom reported Hematologic/Lymphatic: No symptom reported Vital Signs Vital Signs Date Time Temp Pulse Resp B/P (MAP) Pulse Ox O2 Delivery O2 Flow Rate FiO2 04/20/25 13:00 98.3 100 18 101/72 (82) 90 98.3 04/20/25 10:00 Nasal Cannula* 2 28 Physical Exam General Appearance: Cooperative. Well-developed. Well-nourished. No acute distress. Pulmonary/Respiratory: Clear, bilateral breaths sounds. Cardiovascular/Chest: Regular rate and rhythm. Peripheral Pulses: 2+ Radial (R). 2+ Radial (L). 2+ Pedal (R). 2+ Pedal (L) Abdominal Exam: Normal bowel sounds. Ankle Exam: Negative ankle edema Lower extremities: Negative lower extremity edema Neuro/Mental Status: A/OX4, coherent. Thoughts/Psych: Normal thought pattern. Appropriate mood and affect. Good judgment and insight. Appearance: No acute distress. Skin Exam: Normal inspection. Normal color. Warm and dry. Labs/Diagnostic Data Labs Test 04/20/25 06:10 04/19/25 15:30 04/19/25 09:47 04/19/25 07:22 Range/Units White Blood Count 13.2 #H 4.4-10.8 10^3/uL Red Blood Count 4.56 4.5-5.90 10^6/uL Hemoglobin 14.3 13.5-17.5 g/dL Hematocrit 41.7 41.0-53.0 % Mean Corpuscular Volume 91.3 80.0-100.0 fL Mean Corpuscular Hemoglobin 31.3 28.0-32.0 pg Mean Corpuscular Hemoglobin Concent 34.3 32.0-36.0 g/dL Red Cell Distribution Width 14.9 H 11.8-14.3 % Platelet Count 254 140-450 10^3/uL Mean Platelet Volume 8.4 6.9-10.8 fL Neutrophils (%) (Auto) 88.9 H 37.0-80.0 % Lymphocytes (%) (Auto) 6.3 L 10.0-50.0 % Monocytes (%) (Auto) 4.7 0.0-12.0 % Eosinophils (%) (Auto) 0.0 0.0-7.0 % Basophils (%) (Auto) 0.1 0.0-2.0 % Neutrophils # (Auto) 11.7 H 1.6-8.6 10 ^3/uL Lymphocytes # (Auto) 0.8 0.4-5.4 10 ^3/uL Monocytes # (Auto) 0.6 0-1.3 10 ^3/uL Eosinophils # (Auto) 0 0-0.8 10 ^3/uL Basophils # (Auto) 0 0-0.2 10 ^3/uL Nucleated Red Blood Cells 0.0 % Sodium Level 141 136-145 mmol/L Potassium Level 4.1 3.5-5.1 mmol/L Chloride Level 107 98-107 mmol/L Carbon Dioxide Level 25 20-31 mmol/L Anion Gap 9 5-15 Blood Urea Nitrogen 19 9-23 mg/dL Creatinine 1.28 0.700-1.30 mg/dL Glomerular Filtration Rate Calc 61 >90 mL/min BUN/Creatinine Ratio 14.8 10.0-20.0 Serum Glucose 162 H 74-106 mg/dL Calcium Level 9.3 8.7-10.4 mg/dL Total Bilirubin 0.3 0.2-1.0 mg/dL Aspartate Amino Transferase (AST) 17 13-40 U/L Alanine Aminotransferase (ALT) 13 7-40 U/L Alkaline Phosphatase 67 46-116 U/L Total Protein 6.7 5.7-8.2 g/dL Albumin 3.9 3.2-4.8 g/dL Urine Color Yellow Yellow Urine Clarity Clear Clear Urine pH 5.5 5.0-9.0 Urine Specific [place] 1.027 1.001-1.035 Urine Protein Negative Negative Urine Ketones Negative Negative Urine Blood Negative Negative /uL Urine Nitrite Negative Negative Urine Bilirubin Negative Negative Urine Urobilinogen Normal Negative mg/dL Urine Leukocyte Esterase Negative Negative /uL Urine RBC 1 0 - 3 /hpf Urine Microscopic WBC 1 0-3 /HPF Urine Squamous Epithelial Cells None seen <5 /hpf Urine Bacteria None seen None Seen /hpf Urine Mucus Few None Seen Urine Glucose Normal Normal mg/dL Influenza Type A Antigen Negative Negative Influenza Type B Antigen Negative Negative SARS-CoV-2 Antigen (Rapid) Negative NEGATIVE Troponin I High Sensitivity 13 </=54 ng/L Test 04/19/25 04:00 Range/Units D-Dimer, Quantitative 0.33 0.0-0.49 mg/L FEU B-Type Natriuretic Peptide 73.84 0-100 pg/mL Assessment Acute hypoxic respiratory failure secondary to COPD exacerbation Rule out structural heart disease Acute kidney injury, resolved Heavy tobacco use Plan/Recommendation We will continue with the following plan/recommendations (Dr. Gonzalez): We will proceed by obtaining a transthoracic echocardiogram to evaluate cardiac function. The patient clarified that his dyspnea was not exertional and was constant prior to emergency room arrival. Patient reports relief after breathing treatments and supplemental oxygen. At the time of assessment, the patient denies all symptoms. We will upgrade the patient to telemetry monitoring. In the setting of an unremarkable transthoracic echocardiogram, there is no further inpatient cardiac workup indicated at this time. Thank you for allowing us to care for this patient. Please call with any questions or concerns. Critical care time spent: 44 minutes This medical document was created using an electronic medical record system with voice recognition software and computerized dictation system. Although this document has been carefully reviewed, there might still be some phonetic and typographical errors. Occasional wrong-word or ``sound-alike substitutions may have occurred due to the inherent limitations of voice recognition software. These areas are purely typographical due to imperfections of the software programs and do not reflect any compromise in the patient's medical care. Please read the chart carefully and recognize, using context, where these substitutions have occurred. Plan discussed with: Patient NYHA Physical activity limitations: NA Date of Service: Apr 20, 2025 Billing Provider: SHARONA BARBER Cardiology Common Codes: [id number] INP/OBS CARE (High) Cardiology Consultation Codes: [id number] CONSULT <45MIN SHARONA BARBER Apr 20, 2025 14:33
[2025-04-20 14:48] LABS: Triglycerides 53.0 mg/dL (< 150)
[2025-04-20 14:49] LABS: Magnesium 2.1 mg/dL (1.6-2.6)
[2025-04-20 14:50] LABS: Cholesterol 179.0 mg/dL (< 200); HDL Cholesterol 57.0 mg/dL (40-59)
[2025-04-21] VITALS (19 sets, daily range): BP systolic 107–150; BP diastolic 75–99; PULSE 82–104; RESP 18–20; TEMP 97.6–98.4; O2SAT 94–100
--- NOTE | 2025-04-21 12:29 | DVHPN2 ---
Reviewed: Care Plan, H&P, Labs, Medications, Previous Orders, Radiology Changes from previous H/P or p: No Changes Eyes: No Pain, No Vision change, No Conjunctivae inflammation, No Eyelid inflammation, No Other, No Redness ENT: No Ear pain, No Ear discharge, No Nose pain, No Nose discharge, No Nose congestion, No Mouth pain, No Mouth swelling, No Throat pain, No Throat swelling, No Other Cardiovascular: No Chest Pain, No Palpitations, No Orthopnea, No Paroxysmal Noc. Dyspnea, No Edema, No Lt Headedness, No Other Respiratory: No Cough, No Dry; Shortness of breath, SOB with excertion, W heezing; No Hemoptysis, No Pleuritic Pain, No Sputum, No Other Gastrointestinal: No Nausea, No Vomiting, No Abdominal Pain, No Diarrhea, No Constipation, No Melena, No Hematochezia, No Other Genitourinary: No Dysuria, No Frequency, No Incontinence, No Hematuria, No Retention, No Other Musculoskeletal: No other, No neck pain, No shoulder pain, No arm pain, No back pain, No hand pain, No leg pain, No foot pain Skin: No Rash, No Lesions, No Jaundice, No Bruising, No Other Objective Vitals Vital Signs Date Time Temp Pulse Resp B/P (MAP) Pulse Ox O2 Delivery O2 Flow Rate FiO2 04/21/25 10:05 95 Room Air* 0 21 04/21/25 09:23 83 18 04/21/25 09:00 97.6 136/91 (106) 97.6 Intake/Output Intake and Output 04/21/25 07:00 Intake Total 1962 ml Output Total 450 ml Balance 1512 ml Intake Oral 1662 ml IV Total 300 ml Output Urine Total 450 ml # Voids 5 # Bowel Movements 1 Medications Current Medications Medications Dose Ordered Sig/Viraj Route Start Time Stop Time Status Last Admin Dose Admin Methylprednisolone Sodium Succinate 40 mg Q8HR IV 04/19/25 14:00 04/21/25 06:25 40 MG Albuterol 2.5 mg Q4HR NEB 04/19/25 10:00 04/21/25 09:16 2.5 MG Ipratropium [place] 0.5 mg Q4HR NEB 04/19/25 10:00 04/21/25 09:16 0.5 MG Ceftriaxone Sodium 50 ml @ 100 mls/hr DAILY@09 IV 04/19/25 09:00 04/21/25 10:51 100 MLS/HR Azithromycin 250 ml @ 125 mls/hr DAILY IV 04/20/25 10:00 04/21/25 10:52 125 MLS/HR Pantoprazole Sodium 40 mg DAILY IV 04/20/25 10:00 04/21/25 10:51 40 MG Sodium Chloride 1,000 ml @ 100 mls/hr Q10H IV 04/19/25 07:30 04/21/25 11:06 100 MLS/HR Ondansetron HCl 4 mg Q4HP PRN IV 04/19/25 08:00 Docusate Sodium 100 mg BIDPRN PRN PO 04/19/25 07:30 Enoxaparin Sodium 40 mg DAILY SC 04/19/25 10:00 04/21/25 10:52 40 MG Nitroglycerin 0.4 mg Q5MINP PRN SL 04/19/25 09:30 Laboratory Results Laboratory Tests 04/20/25 06:10 Urinalysis Test 04/19/25 15:30 Urine Color Yellow (Yellow) Urine Clarity Clear (Clear) Urine pH 5.5 (5.0-9.0) Urine Specific [place] 1.027 (1.001-1.035) Urine Protein Negative (Negative) Urine Ketones Negative (Negative) Urine Blood Negative /uL (Negative) Urine Nitrite Negative (Negative) Urine Bilirubin Negative (Negative) Urine Urobilinogen Normal mg/dL (Negative) Urine Leukocyte Esterase Negative /uL (Negative) Urine RBC 1 /hpf (0 - 3) Urine Microscopic WBC 1 /HPF (0-3) Urine Squamous Epithelial Cells None seen /hpf (<5) Urine Bacteria None seen /hpf (None Seen) Urine Mucus Few (None Seen) Urine Glucose Normal mg/dL (Normal) Labs and/or images reviewed: Labs reviewed by me, Image(s) reviewed by me Assessment/Plan Assessment/Plan Sepsis possibly secondary to community-acquired pneumonia: Rocephin azithromycin Shortness of breath; Echocardiogram result pending , cardiology consult appreciated Acute hypoxic respiratory distress likely from new onset copd exacerbation : Albuterol Atrovent med neb Acute COPD exacerbation possibly new onset BRAI Acute dehydration Troponin neg BNP neg Chronic Current smoker: Counseled Time Spent 50 minutes Advanced care planning time 20 minutes Patient is full code Plan discussed with: Patient Date of Service: Apr 21, 2025 Billing Provider: BLAZE ROMAN MD Common Visit Codes: [id number] INP/OBS CARE(HIGH) Secondary Visit Codes: [id number] CHNG SMOKING >10MIN BLAZE ROMAN MD Apr 21, 2025 12:29
[2025-04-21] MEDS: ACETAMINOPHEN 325 MG TAB PO PRN (13:25)
[2025-04-21] MEDS: ACETAMINOPHEN 325 MG TAB PO ONE (14:58)
--- NOTE | 2025-04-21 16:25 | DVHSR ---
APPROVED REPORT EXAM: Two-dimensional and M-mode echocardiogram with Doppler and color Doppler. Blood Pressure: 115/85 mmHg INDICATION Exertional dyspnea RISK FACTORS Height: 5'7", Weight: 162 DIMENSIONS LVDd4.8 (3.8-5.7cm)LA (2D)4.0 (1.9-4.0cm)Aortic Root3.5 (2.0-3.7cm) LVDs3.3 (2.5-4.0cm)LA (MM) (1.9-4.0cm)Aortic Cusp Exc1.5 (1.5-2.0cm) EF (%) 60.0 (55-70%)Rt. Atrium4.1 (1.9-4.0cm)Asc. Aorta cm IVSd1.0 (0.7-1.1cm)RV (D) (1.8-2.4cm) PWd1.0 (0.7-1.1cm) Mitral Valve MitralMitral Stenosis E wave0.98m/sMV Mean GR.mmHg A wave0.89m/sMV Peak GR.mmHg E/A ratio1.12D MVAcm2 DECEL [id number] 1/2 [place] Aortic Valve Aortic ValveAortic Stenosis V11.11m/Serge Mean GR.4mmHg V21.42m/Serge Peak GR.8mmHg LVOT Diameter2.0 (1.8-2.4cm)Doppler AVA2.45cm2 Other Information Technically limited study due to body habitus. Conclusion Technically good study. Sinus rhythm. Normal chamber sizes. Valves are normal. There appears to be mild aortic sclerosis without stenosis. The mitral and tricu spid are normal. Left ventricular function is preserved at 60% with normal RV function. Dopplers unremarkable. No pericardial effusion masses or vegetations discernible.
[2025-04-22] VITALS (15 sets, daily range): BP systolic 91–139; BP diastolic 60–83; PULSE 62–96; RESP 12–20; TEMP 36.6; O2SAT 96–100
[2025-04-22 10:31] LABS: Free T3 2.35 pg/mL (2.3-4.2)
[2025-04-22 10:33] LABS: Free T4 (Free Thyroxine) 0.99 ng/dL (0.89-1.76)
--- NOTE | 2025-04-22 14:22 | DVHPN2 ---
Reviewed: Care Plan, H&P, Labs, Medications, Previous Orders, Radiology Changes from previous H/P or p: No Changes Eyes: No Pain, No Vision change, No Conjunctivae inflammation, No Eyelid inflammation, No Other, No Redness ENT: No Ear pain, No Ear discharge, No Nose pain, No Nose discharge, No Nose congestion, No Mouth pain, No Mouth swelling, No Throat pain, No Throat swelling, No Other Cardiovascular: No Chest Pain, No Palpitations, No Orthopnea, No Paroxysmal Noc. Dyspnea, No Edema, No Lt Headedness, No Other Respiratory: No Cough, No Dry; Shortness of breath, SOB with excertion, W heezing; No Hemoptysis, No Pleuritic Pain, No Sputum, No Other Gastrointestinal: No Nausea, No Vomiting, No Abdominal Pain, No Diarrhea, No Constipation, No Melena, No Hematochezia, No Other Genitourinary: No Dysuria, No Frequency, No Incontinence, No Hematuria, No Retention, No Other Musculoskeletal: No other, No neck pain, No shoulder pain, No arm pain, No back pain, No hand pain, No leg pain, No foot pain Skin: No Rash, No Lesions, No Jaundice, No Bruising, No Other Objective Vitals Vital Signs Date Time Temp Pulse Resp B/P (MAP) Pulse Ox O2 Delivery O2 Flow Rate FiO2 04/22/25 12:44 97.9 82 18 139/60 (86) 97 97.9 04/22/25 09:53 Nasal Cannula* 2 28 Intake/Output Intake and Output 04/22/25 07:00 Intake Total 2830 ml Output Total 200 ml Balance 2630 ml Intake Oral 2530 ml IV Total 300 ml Output Urine Total 200 ml # Voids 6 Medications Current Medications Medications Dose Ordered Sig/Viraj Route Start Time Stop Time Status Last Admin Dose Admin Methylprednisolone Sodium Succinate 40 mg Q8HR IV 04/19/25 14:00 04/22/25 05:44 40 MG Albuterol 2.5 mg Q4HR NEB 04/19/25 10:00 04/22/25 14:08 2.5 MG Ipratropium [place] 0.5 mg Q4HR NEB 04/19/25 10:00 04/22/25 14:08 0.5 MG Ceftriaxone Sodium 50 ml @ 100 mls/hr DAILY@09 IV 04/19/25 09:00 04/22/25 09:47 100 MLS/HR Azithromycin 250 ml @ 125 mls/hr DAILY IV 04/20/25 10:00 04/22/25 09:48 125 MLS/HR Pantoprazole Sodium 40 mg DAILY IV 04/20/25 10:00 04/22/25 09:48 40 MG Sodium Chloride 1,000 ml @ 100 mls/hr Q10H IV 04/19/25 07:30 04/21/25 19:30 100 MLS/HR Ondansetron HCl 4 mg Q4HP PRN IV 04/19/25 08:00 Docusate Sodium 100 mg BIDPRN PRN PO 04/19/25 07:30 Enoxaparin Sodium 40 mg DAILY SC 04/19/25 10:00 04/22/25 09:49 40 MG Nitroglycerin 0.4 mg Q5MINP PRN SL 04/19/25 09:30 Acetaminophen 650 mg Q6HP PRN PO 04/21/25 13:15 04/21/25 13:25 650 MG Laboratory Results Laboratory Tests 04/20/25 06:10 Urinalysis Test 04/19/25 15:30 Urine Color Yellow (Yellow) Urine Clarity Clear (Clear) Urine pH 5.5 (5.0-9.0) Urine Specific [place] 1.027 (1.001-1.035) Urine Protein Negative (Negative) Urine Ketones Negative (Negative) Urine Blood Negative /uL (Negative) Urine Nitrite Negative (Negative) Urine Bilirubin Negative (Negative) Urine Urobilinogen Normal mg/dL (Negative) Urine Leukocyte Esterase Negative /uL (Negative) Urine RBC 1 /hpf (0 - 3) Urine Microscopic WBC 1 /HPF (0-3) Urine Squamous Epithelial Cells None seen /hpf (<5) Urine Bacteria None seen /hpf (None Seen) Urine Mucus Few (None Seen) Urine Glucose Normal mg/dL (Normal) Labs and/or images reviewed: Labs reviewed by me, Image(s) reviewed by me Assessment/Plan Assessment/Plan Sepsis possibly secondary to community-acquired pneumonia: Rocephin azithromycin Shortness of breath; Echocardiogram result pending , cardiology consult appreciated Acute hypoxic respiratory distress likely from new onset copd exacerbation : Albuterol Atrovent med neb Acute COPD exacerbation possibly new onset BRIA Acute dehydration Troponin neg BNP neg Chronic Current smoker: Counseled Time Spent 50 minutes Advanced care planning time 20 minutes Patient is full code Patient is insisting to be discharged home today RN Korina at bedside ABG ordered to see if he qualifies for home oxygen Plan discussed with: Patient, Other (RN) Date of Service: Apr 22, 2025 Billing Provider: BLAZE ROMAN MD Common Visit Codes: [id number] INP/OBS CARE(HIGH) BLAZE ROMAN MD Apr 22, 2025 14:22
[2025-04-22] MEDS ORDERED: ALBUAER3 IN (14:25)
[2025-04-22] MEDS ORDERED: AZIT500T66 PO (14:25)
[2025-04-22] MEDS ORDERED: PRED20TA2 PO (14:25)
--- NOTE | 2025-04-22 14:29 | DVHDS2 ---
Discharge Summary Date of Admission Apr 19, 2025 at 09:25 Date of Discharge: Apr 22, 2025 Admitting Diagnosis Shortness of breath Wounds: None Labs/Diagnostic Data: Laboratory Results Test 04/21/25 14:02 04/20/25 06:10 04/19/25 15:30 04/19/25 09:47 Free Thyroxine (T4) Calculated 0.99 ng/dL (0.89-1.76) Free Triiodothyronine (T3) pg/mL 2.35 pg/mL (2.3-4.2) White Blood Count 13.2 10^3/uL (4.4-10.8) Red Blood Count 4.56 10^6/uL (4.5-5.90) Hemoglobin 14.3 g/dL (13.5-17.5) Hematocrit 41.7 % (41.0-53.0) Mean Corpuscular Volume 91.3 fL (80.0-100.0) Mean Corpuscular Hemoglobin 31.3 pg (28.0-32.0) Mean Corpuscular Hemoglobin Concent 34.3 g/dL (32.0-36.0) Red Cell Distribution Width 14.9 % (11.8-14.3) Platelet Count 254 10^3/uL (140-450) Mean Platelet Volume 8.4 fL (6.9-10.8) Neutrophils (%) (Auto) 88.9 % (37.0-80.0) Lymphocytes (%) (Auto) 6.3 % (10.0-50.0) Monocytes (%) (Auto) 4.7 % (0.0-12.0) Eosinophils (%) (Auto) 0.0 % (0.0-7.0) Basophils (%) (Auto) 0.1 % (0.0-2.0) Neutrophils # (Auto) 11.7 10 ^3/uL (1.6-8.6) Lymphocytes # (Auto) 0.8 10 ^3/uL (0.4-5.4) Monocytes # (Auto) 0.6 10 ^3/uL (0-1.3) Eosinophils # (Auto) 0 10 ^3/uL (0-0.8) Basophils # (Auto) 0 10 ^3/uL (0-0.2) Nucleated Red Blood Cells 0.0 % Sodium Level 141 mmol/L (136-145) Potassium Level 4.1 mmol/L (3.5-5.1) Chloride Level 107 mmol/L (98-107) Carbon Dioxide Level 25 mmol/L (20-31) Anion Gap 9 (5-15) Blood Urea Nitrogen 19 mg/dL (9-23) Creatinine 1.28 mg/dL (0.700-1.30) Glomerular Filtration Rate Calc 61 mL/min (>90) BUN/Creatinine Ratio 14.8 (10.0-20.0) Serum Glucose 162 mg/dL (74-106) Hemoglobin A1c 5.8 % A1C (<5.7) Calcium Level 9.3 mg/dL (8.7-10.4) Magnesium Level 2.1 mg/dL (1.6-2.6) Total Bilirubin 0.3 mg/dL (0.2-1.0) Aspartate Amino Transferase (AST) 17 U/L (13-40) Alanine Aminotransferase (ALT) 13 U/L (7-40) Alkaline Phosphatase 67 U/L (46-116) Total Protein 6.7 g/dL (5.7-8.2) Albumin 3.9 g/dL (3.2-4.8) Triglycerides Level 53 mg/dL (< 150) Cholesterol Level 179 mg/dL (< 200) LDL Cholesterol 116 mg/dL (< 100) HDL Cholesterol 57 mg/dL (40-59) Thyroid Stimulating Hormone (TSH) 0.29 uIU/mL (0.55-4.78) Urine Color Yellow (Yellow) Urine Clarity Clear (Clear) Urine pH 5.5 (5.0-9.0) Urine Specific [place] 1.027 (1.001-1.035) Urine Protein Negative (Negative) Urine Ketones Negative (Negative) Urine Blood Negative /uL (Negative) Urine Nitrite Negative (Negative) Urine Bilirubin Negative (Negative) Urine Urobilinogen Normal mg/dL (Negative) Urine Leukocyte Esterase Negative /uL (Negative) Urine RBC 1 /hpf (0 - 3) Urine Microscopic WBC 1 /HPF (0-3) Urine Squamous Epithelial Cells None seen /hpf (<5) Urine Bacteria None seen /hpf (None Seen) Urine Mucus Few (None Seen) Urine Glucose Normal mg/dL (Normal) Influenza Type A Antigen Negative (Negative) Influenza Type B Antigen Negative (Negative) SARS-CoV-2 Antigen (Rapid) Negative (NEGATIVE) Test 04/19/25 07:22 04/19/25 04:00 Troponin I High Sensitivity 13 ng/L (</=54) D-Dimer, Quantitative 0.33 mg/L FEU (0.0-0.49) B-Type Natriuretic Peptide 73.84 pg/mL (0-100) Other Laboratory Tests 04/20/25 06:10 Brief Hx & Hospital Course: 69-year-old male with a history of COPD came in for shortness of breaths found to have community-acquired pneumonia treated with Rocephin azithromycin COPD exacerbation treated with a med neb treatment troponin negative BNP negative chronic current smoker counseled to quit patient feels better currently on room air afebrile and wanted to be discharged home discharged home on azithromycin albuterol MDI and prednisone tablets Consults/Reason for consult None Operations or Procedures None Condition at Discharge: Fair Final Diagnosis/Problems List Sepsis possibly secondary to community-acquired pneumonia: Rocephin azithromycin Shortness of breath; Echocardiogram result pending , cardiology consult appreciated Acute hypoxic respiratory distress likely from new onset copd exacerbation : Albuterol Atrovent med neb Acute COPD exacerbation possibly new onset BRIA Acute dehydration Troponin neg BNP neg Chronic Current smoker: Counseled Discharge Disposition: Home Discharge Instruct/Medications Diet: Cardiac 2g Na,low cholest Activity: Light activity Follow Up/Referral: Follow up with the primary Dr Medications: Azithromycin Albuterol MDI Prednisone Transmitted to pharmacy Scheduled Albuterol Sulfate (Ventolin Mdi), 90 MCG IN QID Azithromycin (Azithromycin), 1 TAB PO DAILY Bacitracin Base (Bacitracin), 500 UNIT TOP BID Cephalexin (Keflex Capsule), 1 CAP PO QID Prednisone (Prednisone), 20 MG PO DAILY Scheduled PRN Acetaminophen (Tylenol Extra Strength), 500 MG PO Q4HP PRN 39 (Time taken for discharge summary 39 minutes) Discharge Statement: "Patient was advised to return to the ER or call 911 if any headaches, dizziness, shortness of breath, chest pain, abdominal pain, bleeding, fevers, or worsening of medical condition. Patient was counseled about treatment plan, medications, possible side effects, patientverbalized understanding. All questions were answered to the best of my ability. This discharge took greater then 30 minutes in planning, reviewing documentation, counseling the patient, and discussing with other team members." ASSESSMENT ASSESSMENT Hospital Course Improved Assessment Sepsis possibly secondary to community-acquired pneumonia: Rocephin azithromycin Shortness of breath; Echocardiogram result pending , cardiology consult appreciated Acute hypoxic respiratory distress likely from new onset copd exacerbation : Albuterol Atrovent med neb Acute COPD exacerbation possibly new onset BRIA Acute dehydration Troponin neg BNP neg Chronic Current smoker: Counseled Date of Service: Apr 22, 2025 Billing Provider: BLAZE ROMAN MD Common Visit Codes: [id number] DISCH DAY >30min BLAZE ROMAN MD Apr 22, 2025 14:29
--- NOTE | 2025-04-23 07:44 | ECG ---
[facility] Test Date: 2025-04-20 Test Time: 14:04:56 Pat Name: TARA MENDOZA Department: Respiratoy Room: 0284T A Gender: M Batch Dumper: DAVID : 1955 Requested By: SHARONA BARBER Order Number: [id number] Reading MD: Scott Gonzalez Measurements Intervals [place] Rate: 82 P: 22 DC: 166 QRS: 43 QRSD: 88 T: 66 QT: 371 QTc: 434 Interpretive Statements Sinus rhythm Atrial premature complexes Low voltage, extremity leads Electronically Signed On 04-23-2025 18:11:22 PDT by Scott Gonzalez Please click the below link to view image of tracing.
== END 2025-04-22 15:17 | disposition home or self-care (01) | DRG 871 ==
LOC: ER 03:34 → OVERFLOW 09:25 → WEST WING 09:27 → TELE-WESTW 11:52 → WEST WING 12:00 → TELE-WESTW 04-21 05:55
PROVIDERS: ADMIT Family Medicine; ATTEND Family Medicine
DX: A41.9 Sepsis, unspecified organism (principal); J18.9 Pneumonia, unspecified organism; J96.01 Acute respiratory failure with hypoxia; J44.1 Chronic obstructive pulmonary disease with (acute) exacerbation; N17.9 Acute kidney failure, unspecified; J44.0 Chronic obstructive pulmonary disease with (acute) lower respiratory infection; Z20.822 Contact with and (suspected) exposure to COVID-19; E86.0 Dehydration; F17.210 Nicotine dependence, cigarettes, uncomplicated; I48.91 Unspecified atrial fibrillation; Z79.899 Other long term (current) drug therapy
CPT/HCPCS: 36415; 71045; 80053; 80061; 81001; 83036; 83735; 83880; 84439; 84443; 84481; 84484; 85025; 85379; 87426; 87804; 93005; 93306; 94640; 99291; G0378; J2470